=== PATIENT | female | born 1945 | race Caucasian/White ===

== ENCOUNTER → 2016-10-06 | Outpatient (CLI) | payer OTHER ==
[~2016-10-06] MED LIST: ALLO300T PO; ASPI-496 PO; CHOL100018 PO; GABA100C8 PO; GADOBUTROL 10 MMOL/10 ML PFS ONE; HYDR-882 PO; LOSA50TA6 PO; METF10002 PO; METH4TAB2 PO; SAXA5TAB PO; SIMV20TA PO; SPIR1TAB PO
== END | disposition home or self-care (01) ==
LOC: CFH 10:05
PROVIDERS: ATTEND Radiology Radiation Oncology
DX: C79.31 Secondary malignant neoplasm of brain (principal); G31.89 Other specified degenerative diseases of nervous system; G93.89 Other specified disorders of brain; I67.82 Cerebral ischemia; R90.82 White matter disease, unspecified; C34.90 Malignant neoplasm of unspecified part of unspecified bronchus or lung
CPT/HCPCS: 70553; A9585

== ENCOUNTER → 2016-10-13 | Outpatient (CLI) | payer OTHER ==
[~2016-10-13] MED LIST changes: -GADOBUTROL 10 MMOL/10 ML PFS ONE
== END | disposition home or self-care (01) ==
LOC: ROC 09:41
PROVIDERS: ATTEND Radiology Radiation Oncology
DX: C79.51 Secondary malignant neoplasm of bone (principal); C34.90 Malignant neoplasm of unspecified part of unspecified bronchus or lung; G31.89 Other specified degenerative diseases of nervous system; I67.82 Cerebral ischemia; R90.82 White matter disease, unspecified; G93.89 Other specified disorders of brain; E11.9 Type 2 diabetes mellitus without complications
CPT/HCPCS: 99213; G0463

== ENCOUNTER → 2016-11-11 | Outpatient (CLI) | payer OTHER ==
[~2016-11-11] MED LIST changes: +OMNIPAQUE 350 MG/ML, 100ML BOTTLE ONE
== END | disposition home or self-care (01) ==
LOC: CFH 08:40
PROVIDERS: ATTEND Internal Medicine Hematology & Oncology
DX: C7A.090 Malignant carcinoid tumor of the bronchus and lung (principal); C78.7 Secondary malignant neoplasm of liver and intrahepatic bile duct; C41.2 Malignant neoplasm of vertebral column; R91.8 Other nonspecific abnormal finding of lung field; M51.34 Other intervertebral disc degeneration, thoracic region; R59.0 Localized enlarged lymph nodes
CPT/HCPCS: 71260; 74177; Q9967

== ENCOUNTER → 2016-11-17 | Outpatient (CLI) | payer OTHER ==
[~2016-11-17] MED LIST changes: +GADOBUTROL 10 MMOL/10 ML PFS ONE; -OMNIPAQUE 350 MG/ML, 100ML BOTTLE ONE
== END | disposition home or self-care (01) ==
LOC: CFH 10:25
PROVIDERS: ATTEND Radiology Radiation Oncology
DX: C79.31 Secondary malignant neoplasm of brain (principal); C34.90 Malignant neoplasm of unspecified part of unspecified bronchus or lung
CPT/HCPCS: 70553; A9585

== ENCOUNTER → 2017-01-08 | Outpatient (CLI) | payer OTHER ==
[~2017-01-08] MED LIST changes: +GABA-826 PO; -GABA100C8 PO; -GADOBUTROL 10 MMOL/10 ML PFS ONE
== END | disposition home or self-care (01) ==
LOC: ROC 08:26
PROVIDERS: ATTEND Radiology Radiation Oncology
DX: C34.30 Malignant neoplasm of lower lobe, unspecified bronchus or lung (principal); C79.31 Secondary malignant neoplasm of brain
CPT/HCPCS: 99213; G0463

== ENCOUNTER → 2017-03-13 | Outpatient (CLI) | payer OTHER ==
[~2017-03-13] MED LIST changes: +CHOL100012 PO; -CHOL100018 PO; +GADOBUTROL 7.5 MMOL/7.5 ML VIAL ONE
== END | disposition home or self-care (01) ==
LOC: CFH 08:40
PROVIDERS: ATTEND Radiology Radiation Oncology
DX: C79.31 Secondary malignant neoplasm of brain (principal); G31.9 Degenerative disease of nervous system, unspecified; R90.82 White matter disease, unspecified; E11.9 Type 2 diabetes mellitus without complications
CPT/HCPCS: 70553; A9585

== ENCOUNTER → 2017-05-04 | Outpatient (CLI) | payer OTHER ==
[~2017-05-04] MED LIST changes: -GADOBUTROL 7.5 MMOL/7.5 ML VIAL ONE; +OMNIPAQUE 350 MG/ML, 100ML BOTTLE ONE
== END | disposition home or self-care (01) ==
LOC: CFH 10:30
PROVIDERS: ATTEND Internal Medicine Hematology & Oncology
DX: C79.51 Secondary malignant neoplasm of bone (principal); C78.7 Secondary malignant neoplasm of liver and intrahepatic bile duct; I70.0 Atherosclerosis of aorta; R91.8 Other nonspecific abnormal finding of lung field; R59.0 Localized enlarged lymph nodes; K57.30 Diverticulosis of large intestine without perforation or abscess without bleeding; C79.31 Secondary malignant neoplasm of brain; C7A.090 Malignant carcinoid tumor of the bronchus and lung; G89.3 Neoplasm related pain (acute) (chronic)
CPT/HCPCS: 71260; 74177; Q9967

== ENCOUNTER → 2017-05-04 | Outpatient (CLI) | payer OTHER ==
[~2017-05-04] MED LIST changes: -OMNIPAQUE 350 MG/ML, 100ML BOTTLE ONE
== END | disposition home or self-care (01) ==
LOC: PETCFH 10:20
PROVIDERS: ATTEND Internal Medicine Hematology & Oncology
DX: C79.51 Secondary malignant neoplasm of bone (principal); C79.31 Secondary malignant neoplasm of brain; C78.7 Secondary malignant neoplasm of liver and intrahepatic bile duct; C7A.090 Malignant carcinoid tumor of the bronchus and lung; G89.3 Neoplasm related pain (acute) (chronic)
CPT/HCPCS: 78306; A9503

== ENCOUNTER 2017-06-16 07:16 | Day surgery (SDC) | payer OTHER ==
[~2017-06-16] VITALS: Ht 161.3 cm; Wt 73.6 kg
[~2017-06-16 07:16] MED LIST changes: +CIPR500T87 PO; +MAGN400O7 PO; +METF500T4 PO; +METH-356 PO; +METH5TAB2 PO; +POLY17PO5 PO; +SENN1TAB9 PO; +SPIR25TA PO; +TAMS-11 PO; +TRAM50TA2 PO
[2017-06-16] MEDS ORDERED: PLEASE ENTER HEIGHT AND WEIGHT MC SCH (08:00)
[2017-06-16 08:05] VITALS: BP 148/94
[2017-06-16] MEDS ORDERED: TRAM50TA2 PO (08:23)
[2017-06-16] MEDS ORDERED: TAMS-11 PO (08:23)
[2017-06-16] MEDS ORDERED: BUME1TAB21 PO (08:23)
[2017-06-16] MEDS ORDERED: METH-356 PO (08:23)
[2017-06-16] MEDS ORDERED: SODIUM CHLORIDE 0.9% 1,000 ML IV SCH (08:23)
[2017-06-16] MEDS ORDERED: ONDA8TAB9 PO (08:23)
[2017-06-16] MEDS ORDERED: CHOL2000 PO (08:23)
[2017-06-16] MEDS ORDERED: ALLO300T PO (08:23)
[2017-06-16] MEDS ORDERED: SENN8.6T98 PO (08:23)
[2017-06-16] MEDS ORDERED: VANCOMYCIN 1,400 MG in SODIUM CHLORIDE 0.9% 250 ML IV ONE (08:30)
[2017-06-16] MEDS ORDERED: LIDOCAINE 2%, 20ML ONE (08:40)
[2017-06-16] MEDS ORDERED: FENTANYL PF 100 MCG/2ML ONE (09:10)
[2017-06-16] MEDS ORDERED: MIDAZOLAM 1 MG/ML, 5ML ONE (09:10)
[2017-06-16] MEDS ORDERED: NALOXONE 1 MG/ML, 2ML ONE (09:10)
[2017-06-16] MEDS ORDERED: FLUMAZENIL 0.1 MG/1 ML, 5ML ONE (09:10)
== END 2017-06-16 11:35 ==
LOC: OUT 07:16
PROVIDERS: ATTEND Internal Medicine
DX: R33.9 Retention of urine, unspecified (principal); I10 Essential (primary) hypertension; E11.9 Type 2 diabetes mellitus without complications; Z85.118 Personal history of other malignant neoplasm of bronchus and lung
CPT/HCPCS: 51102; 75989; 76942; 87070; 87075; 87077; 87106; 87147; 87186; 87205; 99156; 99157; C1725; C1769; J2250; J3010; J3370; J3490; J7030; J7050; J2310

== ENCOUNTER → 2017-07-10 | Outpatient (CLI) | payer OTHER ==
[~2017-07-10] MED LIST changes: +BUME1TAB21 PO; +CHOL2000 PO; +ONDA8TAB9 PO; +SENN8.6T98 PO
== END | disposition home or self-care (01) ==
LOC: WOUND 13:01
PROVIDERS: ATTEND Internal Medicine
DX: L89.313 Pressure ulcer of right buttock, stage 3 (principal); L89.321 Pressure ulcer of left buttock, stage 1; E78.5 Hyperlipidemia, unspecified; M19.90 Unspecified osteoarthritis, unspecified site; Z85.42 Personal history of malignant neoplasm of other parts of uterus; Z72.89 Other problems related to lifestyle; Z90.710 Acquired absence of both cervix and uterus
CPT/HCPCS: 11043; 99215

== ENCOUNTER → 2017-07-17 | Outpatient (CLI) | payer OTHER | END | disposition home or self-care (01) | LOC: WOUND 13:00 | PROVIDERS: ATTEND Family Medicine | DX: E11.622 Type 2 diabetes mellitus with other skin ulcer (principal); L98.411 Non-pressure chronic ulcer of buttock limited to breakdown of skin; L89.313 Pressure ulcer of right buttock, stage 3; L89.321 Pressure ulcer of left buttock, stage 1; E78.5 Hyperlipidemia, unspecified; M19.90 Unspecified osteoarthritis, unspecified site; E11.9 Type 2 diabetes mellitus without complications; Z85.118 Personal history of other malignant neoplasm of bronchus and lung; Z85.42 Personal history of malignant neoplasm of other parts of uterus; Z72.89 Other problems related to lifestyle; Z90.710 Acquired absence of both cervix and uterus | CPT/HCPCS: 11043; 11046; 99215 ==